=== PATIENT | male | born 2000 | race Caucasian/White ===

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

== ENCOUNTER 2022-03-24 22:40 | Emergency (ER) | payer BC, OTHER ==
[~2022-03-24] VITALS: Ht 167.6 cm; Wt 120.2 kg
[2022-03-24 22:43] VITALS: BP 155/76
--- NOTE | 2022-03-24 23:04 | NUR ---
22 yo m bibs w c/o of allergic reaction from eating fish. pt stated his lips swelled up and he was having difficulty breathing. pt took Benadryl with relief. No allergic symptoms currently phx: denies nkda no meds
[2022-03-24] MEDS ORDERED: FAMO-90 PO (23:56)
[2022-03-24] MEDS ORDERED: PRED20TA5 PO (23:56)
[2022-03-25] MEDS ORDERED: predniSONE 20 MG TAB PO ONE
[2022-03-25] MEDS ORDERED: FAMOTIDINE 20 MG TAB PO ONE
--- NOTE | 2022-03-25 00:35 | NUR ---
Pt left with out discharge paperwork
== END 2022-03-25 01:30 | disposition home or self-care (01) ==
LOC: MED 22:40
DX: T78.1XXA Other adverse food reactions, not elsewhere classified, initial encounter (principal); J45.909 Unspecified asthma, uncomplicated; Z79.899 Other long term (current) drug therapy; X58.XXXA Exposure to other specified factors, initial encounter
CPT/HCPCS: 99283